=== PATIENT | male | born 1990 | race Caucasian/White ===

== ENCOUNTER 2017-02-18 12:07 | Outpatient (CLI) ==
[2016-05-14 02:25] VITALS: BMI 38.2
[2017-02-18 12:14] LABS: BASOPHILS % (AUTO) 0.3 % (0.0-3.0); EOSINOPHILS % (AUTO) 0.1 % (0.0-7.0); HEMATOCRIT 45.4 % (42.0-52.0); HEMOGLOBIN 15.8 g/dl (14.0-18.0); IMMATURE GRANULOCYTE % (AUTO) 0.3 % (0.0-5.0); LYMPHOCYTES # (AUTO) 2.6 K/uL (0.60-3.4); LYMPHOCYTES % (AUTO) 35.7 (10.0-50.0); MEAN CORPUSCULAR HEMOGLOBIN 29.8 pg (27.0-31.0); MEAN CORPUSCULAR HGB CONC 34.8 (31.8-35.4); MEAN CORPUSCULAR VOLUME 85.5 fl (80.0-94.0); MONOCYTES # (AUTO) 0.4 K/uL (0.4-2.0); MONOCYTES % (AUTO) 5.2 (0-10); NEUTROPHILS # (AUTO) 4.3 K/ul (2.0-6.9); NEUTROPHILS % (AUTO) 58.4; PLATELET COUNT 338 10^3/uL (140-440); RED BLOOD COUNT 5.31 10^6/ul (4.70-6.10); WHITE BLOOD COUNT 7.36 K/ul (4.2-10.2)
[2017-02-18 12:48] LABS: ALBUMIN/GLOBULIN RATIO 1.14; ANION GAP 12.8; BILIRUBIN,TOTAL 0.4 mg/dL (0.00-1.20); BUN/CREATININE RATIO 11.9; CHOL/HDL RATIO 4.1 (4.5-6.4); CREATININE 0.84 mg/dL (0.60-1.10); POTASSIUM 3.8 mmol/L (3.5-5.1); TOTAL PROTEIN 7.5 g/dL (6.4-8.2)
== END 2017-02-18 12:08 | disposition home or self-care (01) ==
LOC: LAB 12:07
PROVIDERS: ATTEND Nurse Practitioner Family
DX: R07.89 Other chest pain (principal); F31.9 Bipolar disorder, unspecified; F41.9 Anxiety disorder, unspecified
CPT/HCPCS: 36415; 80053; 80061; 80178; 84443; 85025

== ENCOUNTER 2017-03-14 16:06 | Outpatient (CLI) ==
[2016-05-14 02:25] VITALS: BMI 38.2
[2017-03-14 16:20] LABS: BASOPHILS % (AUTO) 0.2 % (0.0-3.0); HEMATOCRIT 44.4 % (42.0-52.0); HEMOGLOBIN 16.1 g/dl (14.0-18.0); IMMATURE GRANULOCYTE % (AUTO) 0.3 % (0.0-5.0); LYMPHOCYTES # (AUTO) 3.8 K/uL (0.60-3.4); LYMPHOCYTES % (AUTO) 37.2 (10.0-50.0); MEAN CORPUSCULAR HEMOGLOBIN 29.8 pg (27.0-31.0); MEAN CORPUSCULAR HGB CONC 36.3 (31.8-35.4); MEAN CORPUSCULAR VOLUME 82.2 fl (80.0-94.0); MONOCYTES # (AUTO) 0.5 K/uL (0.4-2.0); MONOCYTES % (AUTO) 4.8 (0-10); NEUTROPHILS # (AUTO) 5.8 K/ul (2.0-6.9); NEUTROPHILS % (AUTO) 57.5; PLATELET COUNT 387 10^3/uL (140-440); WHITE BLOOD COUNT 10.12 K/ul (4.2-10.2)
[2017-03-14 16:27] LABS: ALBUMIN 4.5 g/dL (3.4-5.0); ALBUMIN/GLOBULIN RATIO 1.32; ANION GAP 15.5; BILIRUBIN,TOTAL 0.88 mg/dL (0.00-1.20); BUN/CREATININE RATIO 5.93; CALCIUM 10.5 mg/dL (8.2-10.2); CREATININE 1.18 mg/dL (0.60-1.10); POTASSIUM 3.5 mmol/L (3.5-5.1); TOTAL PROTEIN 7.9 g/dL (6.4-8.2)
[2017-03-14 16:34] LABS: COCAIN SCREEN,URINE NEGATIVE (NEGATIVE)
== END 2017-03-14 16:07 | disposition home or self-care (01) ==
LOC: LAB 16:06
PROVIDERS: ATTEND Nurse Practitioner Family
DX: F31.9 Bipolar disorder, unspecified (principal); F41.9 Anxiety disorder, unspecified; R19.7 Diarrhea, unspecified
CPT/HCPCS: 36415; 80053; 80306; 85025

== ENCOUNTER 2017-06-16 18:51 | Emergency (ER) ==
[2017-06-16 18:57] VITALS: BP 158/77; TEMP 99.1; BMI 30.3
[2017-06-16] MEDS ORDERED: PERCOCET 7.5-325 PO STA (20:08)
--- NOTE | 2017-06-16 20:14 | ED.PDOC ---
General ED Provider: Dr. AMARI COHEN Chief Complaint: Non-specific Complaint Stated Complaint: Left ankle pain, seen by PM, today but was not given any medications, Time Seen by Physician: 20:12 Mode of Arrival: Walk-In Information Source: Patient Primary Care Provider: AMARI COHEN-[facility] Nursing and Triage Documentation Reviewed and Agree: Yes Reviewed sepsis parameters & appropriate labs ordered?: Yes System Inflammatory Response Syndrome: Not Applicable Sepsis Protocol: For patient's 13 years and over: Temp is 96.8 and below OR 101 and greater Pulse >90 BPM Resp >20/minute Acutely Altered Mental Status Are patient's symptoms suggestive of a new infection, such as: -Pneumonia -Skin, Soft Tissue -Endocarditis -UTI -Bone, Joint Infection -Implantable Device -Acute Abdominal Infection -Wound Infection -Meningitis -Blood Stream Catheter Infection -Unknown Musculoskeletal Complaint Exam - Ankle/Foot Complaint/Exam Location of Injury: Reports: Left Mechanism of Injury: Reports: No known trauma Symptoms Are: Reports: Still present Onset of Pain: Reports: Weeks Initial Severity: Moderate Current Severity: Moderate Location: Reports: Discrete Character: Reports: Aching, Throbbing Alleviating: Reports: None Aggravating: Reports: Movement, Weight bearing Able to Bear Weight: Yes Associated Signs and Symptoms: Denies: Swelling, Redness, Bruising, Fever, Weakness, Numbness, Tingling Related History: Reports: Similar episode Gout Risk Factors: Reports: None Related Surgical History: Reports: None Lower Extremity Findings: Absent: Swelling, Ecchymosis, Abnormal contour, Rotation Achilles Tendon Abnormality: No Limited Range of Motion: Present: Inversion, Eversion Differential Diagnosis: Other (CHRONIC ANKLE PAIN) Review of Systems - Review Of Systems Constitutional: Reports: No symptoms Eyes: Reports: No symptoms Ears, Nose, Mouth, Throat: Reports: No symptoms Respiratory: Reports: No symptoms Cardiac: Reports: No symptoms GI: Reports: No symptoms : Reports: No symptoms Musculoskeletal: Reports: Joint pain Skin: Reports: No symptoms Neurological: Reports: No symptoms Endocrine: Reports: No symptoms Hematologic/Lymphatic: Reports: No symptoms All Other Systems: Reviewed and Negative Past Medical History - Past Medical History Previously Healthy: Yes Endocrine: Reports: Unknown Cardiovascular: Reports: Unknown Respiratory: Reports: Unknown Hematological: Reports: Unknown Gastrointestinal: Reports: Unknown Genitourinary: Reports: Unknown Neuro/Psych: Reports: Unknown Musculoskeletal: Reports: Other (complex regional pain syndrome hx) Cancer: Reports: Other - Surgical History General Surgical History: Reports: Unknown - Family History Family History: Reports: Unknown - Social History Smoking Status: Chews tobacco Hx Substance Use: No Alcohol Screening: Occasionally Physical Exam - Physical Exam Appearance: Ill-appearing, Obese Eyes: EPIFANIO, EOMI, Conjunctiva clear ENT: Ears normal, Nose normal, Oropharynx normal Respiratory: Airway patent, Breath sounds clear, Breath sounds equal, Respirations nonlabored Cardiovascular: RRR, Pulses normal, No rub, No murmur GI/: Soft, Nontender, No masses, Bowel sounds normal, No Organomegaly Musculoskeletal: Normal strength, ROM intact, No edema, No calf tenderness Skin: Warm, Dry, Normal color Neurological: Sensation intact, Motor intact, Reflexes intact, Cranial nerves intact, Alert, Oriented Psychiatric: Affect appropriate, Mood appropriate Critical Care Note - Critical Care Note Total Time (mins): 10 Course - Course Orders, Labs, Meds: Orders Category Date Time Status Oxycodone-Acetaminophe 7.5-325 [Percocet 7.5-325] MEDS 06/16/17 20:08 Discontinued 1 tab PO ONCE STA Medications Discontinued Medications Generic Name Dose Route Start Last Admin Trade Name Freq PRN Reason Stop Dose Admin Oxycodone/Acetaminophen 1 tab 06/16/17 20:08 Percocet 7.5-325 PO 06/16/17 20:09 ONCE STA Vital Signs: Temp Pulse Resp BP Pulse Ox 06/16/17 18:53 99.1 F 102 H 16 158/77 H 98 Departure - Departure Time of Disposition: 20:14 Disposition: HOME SELF-CARE Discharge Problem: Left lateral ankle pain Instructions: Arthralgia (ED) Condition: Stable Pt referred to PMD for follow-up: Yes IPMP verified?: Yes Additional Instructions: kEEP F/U WITH Katharina Keep F/u with PM Prescriptions: Oxycodone HCl/Acetaminophen [Percocet 10-325 mg Tablet] 1 tab PO TID PRN #10 tablet PRN Reason: PAIN Allergies/Adverse Reactions: Allergies No Known Allergies Allergy (Verified 06/16/17 18:57) Home Medications: Ambulatory Orders [place] Carbonate 900 mg PO BEDTIME 05/13/16 W[place] Carbonate [W[place]ton Carbonate Er] 450 mg PO d 05/13/16 Gabapentin 800 mg PO TID 12/16/16 Oxycodone HCl/Acetaminophen [Percocet 10-325 mg Tablet] 1 tab PO TID PRN #10 tablet 06/16/17 Disposition Discussed With: Patient, Family
== END 2017-06-16 20:20 | disposition home or self-care (01) ==
LOC: ED 18:51
DX: M25.572 Pain in left ankle and joints of left foot (principal); Z72.0 Tobacco use
CPT/HCPCS: 99282

== ENCOUNTER 2017-06-17 16:09 | Outpatient (CLI) ==
[2017-06-16 18:57] VITALS: BMI 30.3
== END 2017-06-17 16:10 | disposition home or self-care (01) ==
LOC: LAB 16:09
PROVIDERS: ATTEND Nurse Practitioner Family
DX: M25.572 Pain in left ankle and joints of left foot (principal); G89.29 Other chronic pain; E78.00 Pure hypercholesterolemia, unspecified; R73.09 Other abnormal glucose; F12.90 Cannabis use, unspecified, uncomplicated; Z79.899 Other long term (current) drug therapy
CPT/HCPCS: 36415; 80053; 80061; 80307; 83036

== ENCOUNTER 2018-08-03 16:11 | Outpatient (CLI) ==
--- NOTE | 2018-08-03 16:42 | DI ---
EXAM: three views of the left ankle HISTORY: Left ankle swelling after fall 2 weeks prior. COMPARISON: None FINDINGS: There is no cortical irregularity or displaced fracture. There is soft tissue swelling. T here is no lytic or blastic lesion. There is scarring in the distal tibia that may represent prior i nternal fixation. The joint spaces unremarkable. There is mild soft tissue swelling. IMPRESSION: 1. No acute abnormality or fracture of the left ankle. There is mild soft tissue swelling 2. Mild degenerative change and questionable scarring from prior internal fixation.
--- NOTE | 2018-08-03 16:43 | DI ---
EXAM: Three views of the left foot HISTORY: Left foot pain. COMPARISON: Left ankle x-rays same day FINDINGS: There is a minimally displaced fracture of the distal aspect of proximal phalanx of the fif th digit which extends into the IP joint. No additional fracture is identified. The soft tissues ar e unremarkable. There is scattered degenerative disease. IMPRESSION: 1. Minimally displaced fracture to the distal aspect of the proximal phalanx of the fifth digit whic h extends into the joint space. 2. Scattered mild degenerative disease.
--- NOTE | 2018-08-03 17:45 | DI ---
EXAM: Left knee four views HISTORY: Fall COMPARISON: None. FINDINGS: There is mild narrowing of the medial joint compartment. There is no acute fracture or vicenta int effusion. The surrounding soft tissues are unremarkable. IMPRESSION: No acute findings
--- NOTE | 2018-08-03 17:48 | DI ---
EXAM: Left tibia and fibula two views HISTORY: Fall COMPARISON: None. FINDINGS: There is no acute fracture or dislocation . Old healed post-traumatic change are seen inv olving the distal tibia. IMPRESSION: No acute findings
== END 2018-08-03 16:12 | disposition home or self-care (01) ==
LOC: RAD 16:11
PROVIDERS: ATTEND Nurse Practitioner Family
DX: M25.562 Pain in left knee (principal); M79.662 Pain in left lower leg; M25.472 Effusion, left ankle; M79.672 Pain in left foot